=== PATIENT | male | born 1970 | race Caucasian/White ===

== ENCOUNTER → 2018-01-25 | Emergency (ER) | payer OTHER ==
[~2018-01-25] VITALS: Ht 175.3 cm; Wt 89.4 kg
[~2018-01-25] MED LIST: VIAGRA100 MG
== END | disposition left against medical advice (07) ==
LOC: ER 20:57
DX: Z53.20 Procedure and treatment not carried out because of patient's decision for unspecified reasons (principal)

== ENCOUNTER 2019-09-16 14:05 | Outpatient (CLI) | payer OTHER | END 2019-09-16 14:45 | disposition home or self-care (01) | LOC: OFIC 805 14:05 | PROVIDERS: ATTEND Otolaryngology | DX: H90.41 Sensorineural hearing loss, unilateral, right ear, with unrestricted hearing on the contralateral side (principal); H61.23 Impacted cerumen, bilateral ==